=== PATIENT | male | born 1945 | race Caucasian/White ===

== ENCOUNTER 2016-09-21 14:37 | Inpatient (IN) | payer MEDICARE ==
[~2016-09-21] VITALS: Ht 175.3 cm; Wt 100.0 kg
[~2016-09-21 14:37] MED LIST: BUFFERED ASPIR325 M1 PO; BYSTOLIC PO; LIPITOR40 MG PO; MICARDIS40 MG PO; PLAVIX 75MG TAB75 MG PO; RT SPIRIVA18 MCG IH
[2016-09-21] MEDS ORDERED: TOPROL XL 50MG50 MG PO (15:12)
[2016-09-21] MEDS ORDERED: FOLIC ACID 11 MG/TA1 PO (15:13)
[2016-09-21] MEDS ORDERED: ZOCOR 40MG40 MG PO (15:13)
[2016-09-21] MEDS ORDERED: LASIX 40MG TABL40 MG PO (15:13)
[2016-09-21] MEDS ORDERED: K-DUR20 MEQ PO (15:14)
[2016-09-21] MEDS ORDERED: ASPIRIN 81M81 MG/TA2 PO (15:14)
[2016-09-21] MEDS ORDERED: VENTOLIN0.09 MG IH (15:43)
[2016-09-21 15:49] LABS: HEMATOCRIT 46.3 % (42.0-52.0); HEMOGLOBIN 16.1 g/dl (13.5-18.0); MEAN CELL VOLUME 101 fl (80.0-100.0); MEAN CORPUSCULAR HEMOGLOBIN 35 pg (27.0-31.0); MEAN CORPUSCULAR HGB CONC 35 g/dl (33.0-37.0); MEAN PLATELET VOLUME 10.5 fl (7.4-10.4); PLATELET COUNT 129 K/mm3 (130-400); REDCELL DISTRIBUTION WIDTH-CV 13.5 % (11.5-14.5)
[2016-09-21 15:57] LABS: ANION GAP 15 mmol/L (7-16); BLOOD UREA NITROGEN 10 mg/dL (9-20); CALCIUM 9.2 mg/dL (8.4-10.2); CARBON DIOXIDE 29 mmol/L (22-30); CHLORIDE 93 mmol/L (98-107); CREATININE, serum 0.79 mg/dL (0.66-1.25); GLUCOSE 106 mg/dL (74-106); POTASSIUM 3.6 mmol/L (3.4-5.0); SODIUM 137 mmol/L (137-145)
[2016-09-21 16:09] LABS: B-TYPE NATRIURETIC PEPTIDE 69 pg/mL (0-125)
[2016-09-21 16:12] LABS: TROPONIN-I < 0.012 ng/mL (0.000-0.034)
[2016-09-21 16:56] LABS: MAGNESIUM 1.6 mg/dL (1.6-2.3)
[2016-09-21 16:58] LABS: INR 1.2 (0.8-3.0); PROTHROMBIN TIME 13.1 SECONDS (9.7-12.8)
[2016-09-21 17:00] LABS: PARTIAL THROMBOPLASTIN TIME 30.3 SECONDS (26.0-37.0)
[2016-09-21 17:11] VITALS: BP 133/68; PULSE 64; TEMP 98.6
[2016-09-21 17:12] VITALS: BP 133/68; PULSE 64; TEMP 98.6
[2016-09-21 18:09] LABS: PH 7 (5-8); SQUAMOUS EPITHELIAL None Seen /hpf; URINE APPEARANCE Clear; URINE BACTERIA None Seen /hpf; URINE BILIRUBIN Negative (NEGATIVE); URINE BLOOD Negative (NEGATIVE); URINE COLOR Yellow; URINE GLUCOSE Negative (NEGATIVE); URINE KETONE Negative (NEGATIVE); URINE RBC 0-2 /hpf; URINE UROBILINOGEN >=4.0 mg/dL (NEGATIVE); URINE WBC 0-2 /hpf
[2016-09-21 18:18] LABS: AMPHETAMINE URINE NEGATIVE; BARBITURATES URINE NEGATIVE; BENZODIAZEPINES URINE NEGATIVE; BUPRENORPHINE URINE NEGATIVE; METHADONE URINE NEGATIVE; OPIATES URINE NEGATIVE; OXYCODONE URINE NEGATIVE; PHENCYCLIDINE URINE NEGATIVE; PROPOXYPHENE URINE NEGATIVE; THC CANNABINOIDS URINE NEGATIVE
[2016-09-21 19:41] VITALS: BP 167/67; PULSE 69; TEMP 98.5
[2016-09-21 23:08] VITALS: BP 120/82; BP 137/66; PULSE 60; PULSE 74; TEMP 98.5
[2016-09-22 03:27] VITALS: BP 162/74; PULSE 79; TEMP 98.8
[2016-09-22 08:26] VITALS: BP 164/67; PULSE 72; TEMP 98.1
[2016-09-22 11:08] VITALS: BP 171/73; PULSE 61; TEMP 97.6
[2016-09-22 15:26] VITALS: BP 172/63; PULSE 63; TEMP 98.3
[2016-09-22 20:55] VITALS: BP 163/77; PULSE 80; TEMP 98.3
[2016-09-23 00:43] VITALS: BP 171/77; PULSE 65; TEMP 98.7
[2016-09-23 04:51] VITALS: BP 137/50; PULSE 71; TEMP 98.8
[2016-09-23 07:28] VITALS: BP 163/73; PULSE 69; TEMP 97.2
[2016-09-23] MEDS ORDERED: STIOLTO RESPIMAT4 GM IH (11:54)
== END 2016-09-23 12:16 | disposition home or self-care (01) | DRG 191 ==
LOC: MEDICAL 14:37
PROVIDERS: Internal Medicine Interventional Cardiology
DX: J44.1 Chronic obstructive pulmonary disease with (acute) exacerbation (principal); I50.32 Chronic diastolic (congestive) heart failure; I11.0 Hypertensive heart disease with heart failure; I70.213 Atherosclerosis of native arteries of extremities with intermittent claudication, bilateral legs; I87.2 Venous insufficiency (chronic) (peripheral); I25.10 Atherosclerotic heart disease of native coronary artery without angina pectoris; Z95.5 Presence of coronary angioplasty implant and graft; F17.210 Nicotine dependence, cigarettes, uncomplicated; Z85.828 Personal history of other malignant neoplasm of skin; Z95.820 Peripheral vascular angioplasty status with implants and grafts; F10.20 Alcohol dependence, uncomplicated
CPT/HCPCS: J1650

== ENCOUNTER 2017-11-26 14:00 | Emergency (ER) | payer MEDICARE ==
[~2017-11-26] VITALS: Ht 175.3 cm; Wt 96.9 kg
[2017-11-26 12:22] VITALS: BP 147/82; PULSE 78
[2017-11-26 13:46] VITALS: BP 155/80; PULSE 68
[~2017-11-26 14:00] MED LIST changes: +ANORO IH; +ASPIRIN 81M81 MG/TA2 PO; +FOLIC ACID 11 MG/TA1 PO; +K-DUR20 MEQ PO; +LASIX 40MG TABL40 MG PO; +STIOLTO RESPIMAT4 GM IH; +TOPROL XL 50MG50 MG PO; +VENTOLIN0.09 MG IH; +ZOCOR 40MG40 MG PO
[2017-11-26 14:04] VITALS: TEMP 97.2
[2017-11-26 14:35] LABS: PERITONEAL -POLYMORPHONUCLEAR 11.9 % (0-25); PERITONEAL FLUID RBC 1000 /mm3 (0-0)
[2017-11-26 15:08] LABS: BASO # 0.1 (0.0-0.2); BASO % 0.9 % (0.0-2.0); EOS # 0.3 (0.0-0.7); EOS % 4.9 % (0-4.0); GRAN # 3.6 (1.4-6.5); GRAN % 67.6 % (42.2-75.2); HEMATOCRIT 43.3 % (42.0-52.0); HEMOGLOBIN 14.9 g/dl (13.5-18.0); LYMPH # 1.1 (1.2-3.4); LYMPH % 20.5 % (20.0-51.0); MEAN CELL VOLUME 98 fl (80.0-100.0); MEAN CORPUSCULAR HEMOGLOBIN 34 pg (27.0-31.0); MEAN CORPUSCULAR HGB CONC 34 g/dl (33.0-37.0); MEAN PLATELET VOLUME 10.5 fl (7.4-10.4); MONO # 0.3 (0.1-0.6); MONO % 5.9 % (1.7-9.3); PLATELET COUNT 164 K/mm3 (130-400); RED BLOOD COUNT 4.41 M/mm3 (4.20-5.60); REDCELL DISTRIBUTION WIDTH-CV 13.1 % (11.5-14.5)
[2017-11-26 15:17] LABS: ALANINE AMINOTRANSFERASE 22 U/L (21-72); ALKALINE PHOSPHATASE 59 U/L (50-136); ANION GAP 13 mmol/L (7-16); AST,SGOT 58 U/L (15-37); BILIRUBIN,TOTAL 1.7 mg/dL (0.0-1.0); BLOOD UREA NITROGEN 6 mg/dL (9-20); C-REACTIVE PROTEIN 3.5 mg/dL (0.0-0.9); CALCIUM 9.1 mg/dL (8.4-10.2); CARBON DIOXIDE 33 mmol/L (22-30); CREATININE, serum 0.76 mg/dL (0.66-1.25); GLUCOSE 98 mg/dL (74-106); LIPASE 53 U/L (23-300); SODIUM 135 mmol/L (137-145)
[2017-11-26 15:18] LABS: CHLORIDE 89 mmol/L (98-107)
[2017-11-26 15:19] LABS: POTASSIUM 2.7 mmol/L (3.4-5.0)
[2017-11-26 15:27] LABS: TROPONIN-I < 0.012 ng/mL (0.000-0.034)
[2017-11-26] MEDS ORDERED: K-DUR20 MEQ PO (16:18)
[2017-11-26 16:31] VITALS: BP 126/68; PULSE 68
== END 2017-11-26 16:33 | disposition home or self-care (01) ==
LOC: COL.ER 14:00
PROVIDERS: Emergency Medicine; Family Medicine
DX: R18.8 Other ascites (principal); R07.89 Other chest pain; E87.6 Hypokalemia; I10 Essential (primary) hypertension; E78.5 Hyperlipidemia, unspecified; J44.9 Chronic obstructive pulmonary disease, unspecified; F17.210 Nicotine dependence, cigarettes, uncomplicated; Z98.890 Other specified postprocedural states

== ENCOUNTER → 2018-02-12 | Outpatient (CLI) | payer MEDICARE ==
[~2018-02-12] VITALS: Ht 175.3 cm; Wt 97.3 kg
[~2018-02-12] MED LIST changes: +ALDACTONE 25MG25 M1 PO; +TOPROL XL100 MG PO
[2018-02-12 13:33] VITALS: BP 160/87; PULSE 77
[2018-02-12 15:49] VITALS: BP 143/70; PULSE 87
== END ==
LOC: COL.RAD 12:00
DX: K70.31 Alcoholic cirrhosis of liver with ascites (principal)

== ENCOUNTER → 2018-03-25 | Outpatient (CLI) | payer MEDICARE ==
[~2018-03-25] VITALS: Ht 175.3 cm; Wt 97.4 kg
[2018-03-25 15:01] VITALS: BP 152/67; PULSE 73
[2018-03-25 16:26] LABS: PERITONEAL -POLYMORPHONUCLEAR 12.5 % (0-25); PERITONEAL FLUID RBC 1000 /mm3 (0-0)
[2018-03-25 16:51] VITALS: BP 122/67; PULSE 76
--- NOTE | 2018-03-25 17:08 | NUR ---
pt taken to pov in wheelchair. no c/o pain or discomfort.
== END ==
LOC: COL.RAD 14:30
PROVIDERS: Family Medicine
DX: C34.11 Malignant neoplasm of upper lobe, right bronchus or lung (principal); R18.8 Other ascites

== ENCOUNTER → 2018-04-03 | Outpatient (CLI) | payer MEDICARE ==
[~2018-04-03] VITALS: Ht 175.3 cm; Wt 91.7 kg
[~2018-04-03] MED LIST changes: +TYLENOL 325MG325 MG PO
[2018-04-03 08:34] VITALS: BP 126/78; PULSE 76
[2018-04-03 09:15] VITALS: BP 147/80; PULSE 74
--- NOTE | 2018-04-03 10:15 | NUR ---
Pt out to front patient area waiting for daughter to take him home. Pt denies complaints at this time. Pt has discharge paperwork and cd of xray he brought to hospital.
== END ==
LOC: COL.RAD 08:10
DX: C34.11 Malignant neoplasm of upper lobe, right bronchus or lung (principal)

== ENCOUNTER 2018-04-07 19:13 | Inpatient (IN) | payer MEDICARE ==
[~2018-04-07] VITALS: Ht 175.3 cm; Wt 82.5 kg
[2018-04-07 19:42] LABS: BASO # 0.1 (0.0-0.2); BASO % 0.6 % (0.0-2.0); EOS # 2.6 (0.0-0.7); EOS % 21.8 % (0-4.0); GRAN # 7.7 (1.4-6.5); GRAN % 63.7 % (42.2-75.2); HEMOGLOBIN 15.6 g/dl (13.5-18.0); LYMPH # 0.9 (1.2-3.4); LYMPH % 7.6 % (20.0-51.0); MEAN CELL VOLUME 94 fl (80.0-100.0); MEAN CORPUSCULAR HEMOGLOBIN 33 pg (27.0-31.0); MEAN CORPUSCULAR HGB CONC 35 g/dl (33.0-37.0); MEAN PLATELET VOLUME 9.9 fl (7.4-10.4); MONO # 0.6 (0.1-0.6); MONO % 5.1 % (1.7-9.3); PLATELET COUNT 127 K/mm3 (130-400); REDCELL DISTRIBUTION WIDTH-CV 12.9 % (11.5-14.5)
[2018-04-07 19:57] LABS: ALANINE AMINOTRANSFERASE < 6 U/L (21-72); ALBUMIN 3.6 gm/dL (3.5-5.0); ALCOHOL(ethanol),MEDICAL < 10 mg/dL; ALKALINE PHOSPHATASE 101 U/L (50-136); ANION GAP 12 mmol/L (7-16); AST,SGOT 35 U/L (15-37); BILIRUBIN,TOTAL 1.7 mg/dL (0.0-1.0); BLOOD UREA NITROGEN 15 mg/dL (9-20); CALCIUM 8.8 mg/dL (8.4-10.2); CARBON DIOXIDE 26 mmol/L (22-30); CHLORIDE 92 mmol/L (98-107); CREATININE, serum 0.77 mg/dL (0.66-1.25); GLUCOSE 104 mg/dL (74-106); POTASSIUM 4.4 mmol/L (3.4-5.0); SODIUM 129 mmol/L (137-145); TOTAL PROTEIN 7.5 gm/dL (6.4-8.2)
[2018-04-07 22:59] VITALS: BP 117/55; PULSE 80; TEMP 97.4
--- NOTE | 2018-04-07 23:00 | NUR ---
Pt arrived to room 355, transfered per stretcher by ED staff. Pt awake, a&o, cooperative c cares. Pt reports pain to L shoulder/side, denies any other c/o. INT patent. Pt oriented to room, unit policies et current POC. Questions invited et answered, pt verbalizes understanding. Provided c sandwich box per request, pt denies other needs. Call light in reach, bed alarm on. Will monitor.
[2018-04-07] MEDS ORDERED: K-TAB20 PO (23:34)
[2018-04-08] VITALS (7 sets, daily range): BP systolic 97–146; BP diastolic 43–82; PULSE 70–84; TEMP 97.5–98.2
[2018-04-08 06:08] LABS: BASO % 0.5 % (0.0-2.0); EOS # 0.5 (0.0-0.7); EOS % 6.6 % (0-4.0); GRAN # 6.8 (1.4-6.5); GRAN % 82.4 % (42.2-75.2); HEMATOCRIT 43.4 % (42.0-52.0); HEMOGLOBIN 14.7 g/dl (13.5-18.0); LYMPH # 0.6 (1.2-3.4); LYMPH % 6.9 % (20.0-51.0); MEAN CELL VOLUME 96 fl (80.0-100.0); MEAN CORPUSCULAR HEMOGLOBIN 33 pg (27.0-31.0); MEAN CORPUSCULAR HGB CONC 34 g/dl (33.0-37.0); MEAN PLATELET VOLUME 10.3 fl (7.4-10.4); MONO # 0.2 (0.1-0.6); MONO % 2.3 % (1.7-9.3); PLATELET COUNT 144 K/mm3 (130-400); RED BLOOD COUNT 4.53 M/mm3 (4.20-5.60)
[2018-04-08 06:17] LABS: CALCIUM 8.6 mg/dL (8.4-10.2); CREATININE, serum 0.8 mg/dL (0.66-1.25); POTASSIUM 4.2 mmol/L (3.4-5.0)
[2018-04-08 09:02] LABS: INR 1.3 (0.8-3.0); PROTHROMBIN TIME 14.7 SECONDS (9.7-12.8)
--- NOTE | 2018-04-08 09:15 | NUR ---
Pt denied pain earlier this AM; down to MRI at this time.
--- NOTE | 2018-04-08 10:32 | NUR ---
Pt denies pain. Returns from MRI. Consult called to Dr. Guevara.
[2018-04-08 11:03] LABS: COLLECTION METHOD CLEAN CATCH
[2018-04-08 11:06] LABS: PH 7 (5-8); SQUAMOUS EPITHELIAL None Seen /hpf; URINE APPEARANCE Clear; URINE BACTERIA None Seen /hpf; URINE BILIRUBIN Negative (NEGATIVE); URINE BLOOD Negative (NEGATIVE); URINE COLOR Yellow; URINE GLUCOSE Negative (NEGATIVE); URINE KETONE Negative (NEGATIVE); URINE LEUKOCYTE ESTERASE Negative (NEGATIVE); URINE NITRATE Negative (NEGATIVE); URINE PROTEIN(semi-quant) Negative (NEGATIVE); URINE RBC 0-2 /hpf; URINE UROBILINOGEN >=4.0 mg/dL (NEGATIVE)
--- NOTE | 2018-04-08 14:02 | NUR ---
Pt to ultrasound for paracentesis.
--- NOTE | 2018-04-08 14:44 | NUR ---
Dr Blackmon here and directed to radiology to talk with pt. Verified with radiology staff that this could be done and Dr Blackmon went to radiology to see pt. Pt had expressed interest in radiation therapy earlier when we had talked. He remembered that it would probably be 10 treatments. He reports that his feet feel like they are rounded and unstable which has contributed to his recent falls.
--- NOTE | 2018-04-08 15:00 | NUR ---
Rob J collar placed on patient per Dr. Beltran.
--- NOTE | 2018-04-08 15:30 | NUR ---
RADHA met with the patient to discuss discharge plan. The patient lives in [place]. He has an apartment off the north side of his home, which his daughter (Kim) and granddaughter (Preeti) live in. He reports needing occasional assistance with bathing and has a cane and four wheeled walker. The patient reports that he could receive assistance from his daughter. RADHA discussed home health services. The patient reports that he would be interested. RADHA provided the patient with Medicare.[employer]'s list of home health agencies that serve [place]. The patient reports that he would need to dicuss the different agencies with his daughter. The patient's PCP is Dr. Shahram Guevara and he receives his medications at the [facility]. He reports no difficulties obtaining his meds. The patient does not have advanced directives, but he was interested in obtaining the form for DPOA-HC. RADHA provided. The patient plans to return home upon discharge. SW to continue to follow.
--- NOTE | 2018-04-08 18:18 | NUR ---
Pt had uneventful day. Potential discharge tomorrow. Denies further needs at this time; will continue to monitor.
--- NOTE | 2018-04-08 19:04 | NUR ---
Report given to VIPUL Sharma. Pt resting in bed.
--- NOTE | 2018-04-08 20:30 | NUR ---
Initial shift assessment done- denies any pain at this time,,has hard collar to neck-states that is uncomfortable , Tele on, SCD,s applied at this time. Understands he has to call for assistance to bathroom- did help him at this time-steady on feet, back to bed. Bed alarm on as a reminder. Family in room visiting
[2018-04-09 00:36] VITALS: BP 130/60; PULSE 71; TEMP 98.3
[2018-04-09 05:21] VITALS: BP 109/49; BP 94/50; PULSE 65; TEMP 98.4; TEMP 98.6
--- NOTE | 2018-04-09 05:37 | NUR ---
Up to bathoom with assist x3- voiding without problems. Uses walker and assist of nurse. Sitting at edge of bed-eating some pudding--refusing his neck brace
[2018-04-09 07:32] VITALS: BP 95/46; PULSE 68; TEMP 98.4
[2018-04-09 08:32] LABS: CALCIUM 8.6 mg/dL (8.4-10.2); CREATININE, serum 0.79 mg/dL (0.66-1.25); POTASSIUM 3.9 mmol/L (3.4-5.0)
--- NOTE | 2018-04-09 09:24 | NUR ---
Pt resting in bed with call light within reach. Refusing to wear cervical collar, stating "I can't hardly breathe or eat with that thing on." Plan for Xrays today and a potential discharge. Pt denies further needs at this time; will continue to monitor.
--- NOTE | 2018-04-09 10:42 | NUR ---
RADHA attended clinical rounds. The patient is to tentatively discharge today, 04/09. RADHA followed up on home health. The patient preferred [facility]. RADHA contacted and faxed a referral to [facility] . SW awaiting their screening.
--- NOTE | 2018-04-09 10:53 | NUR ---
Initial visit; Patient thanked [employer] for looking in on him and offering God's blessings and to be kept in [employer]'s prayers.
[2018-04-09 11:46] VITALS: BP 124/64; PULSE 64; TEMP 98.2
--- NOTE | 2018-04-09 15:39 | NUR ---
[facility], at [facility], reports that they can accept the patient for services. SW to inform the patient and continue to follow.
[2018-04-09 15:50] VITALS: BP 130/58; PULSE 61; TEMP 98.4
--- NOTE | 2018-04-09 17:55 | NUR ---
Pt had uneventful day. Awaiting recommendations from neurosurgeon at [facility]. Pt verbalizes understanding that he will have to stay here another night; expresses that he wants a cigarette. Reviewed smoking policy; pt verbalizes understanding. States he is not interested in a nicotine patch.
--- NOTE | 2018-04-09 18:53 | NUR ---
Report given to VIPUL Bullock. Pt resting in bed and denies needs at this time.
[2018-04-09 19:00] VITALS: BP 117/58; PULSE 63; TEMP 98.4
--- NOTE | 2018-04-09 20:01 | NUR ---
Up to restroom and returned to bed x1 assist with walker. Assessment complete. Lungs clear. Bowels active. Denies pain at this time. Right lower leg +1 edema. Bruise to left hand. Denies needs at this time. Visitor in room. Call light in reach. Bed alarm on.
--- NOTE | 2018-04-09 23:25 | NUR ---
Resting in bed asleep. Call light in reach. Bed alarm on.
[2018-04-10 00:15] VITALS: BP 101/45; PULSE 53; TEMP 98.5
--- NOTE | 2018-04-10 02:00 | NUR ---
Resting in bed asleep. Removed colar. Call light in reach.
[2018-04-10 04:09] VITALS: BP 132/63; PULSE 62; TEMP 98.4
--- NOTE | 2018-04-10 06:08 | NUR ---
Uneventful night. Resting in bed this AM without neck colar on. Call light in reach.
[2018-04-10 07:36] VITALS: BP 135/64; PULSE 61; TEMP 98.4
--- NOTE | 2018-04-10 08:42 | NUR ---
Assessment completed, alert/oriented, vital signs stable, reports mild pain/ exacerbated by left arm/shoulder rotationd due to clavicle fx, heart RRR, lungs CTA, he is currently wearing his C-collar but was given permission by to removed collar intermittently for comfort, awaiting recs from neurosurgery in [place] for discharg options , he is sititng up eating breakfast, denies other needs at this time
--- NOTE | 2018-04-10 10:39 | NUR ---
SW met with the patient to discuss occupational therapies recommendation of a front wheeled walker. The patient reports that he would be interested in getting one. SW discussed DME options and presented and explained the patient choice form. The patient preferred [facility]. Patient choice form signed and he was provided a copy. RADHA contacted and faxed the patient's walker order to [facility].
[2018-04-10 11:01] VITALS: BP 126/82; PULSE 58; TEMP 98.1
[2018-04-10] MEDS ORDERED: DECADRON 4MG TAB4 MG PO (11:46)
--- NOTE | 2018-04-10 13:10 | NUR ---
[facility] to deliver the patient's FWW to his room. The patient is to discharge back home today, 04/10, with home health services for halfway/PT/OT through [facility]. No additional needs at this time.
--- NOTE | 2018-04-10 14:39 | NUR ---
Discharge orders discussed with patient, instructed to wear C-Collar at all times, instructed to follow up with as scheduled, patient daughter will call office for consult to set up outpatient radiation, IV removed, script for Decadron sent to [facility] pharmacy, [employer] escorting him out by wheelchair
== END 2018-04-10 14:30 | disposition home health service (06) | DRG 55 ==
LOC: COL.ER 19:13 → MEDICAL 22:06
PROVIDERS: Emergency Medicine; Nurse Practitioner; Physician Assistant; ADMIT Hospitalist
PROC: 0W9G3ZZ Drainage of Peritoneal Cavity, Percutaneous Approach (ICD-10-PCS; principal; 2018-04-08)
DX: C79.31 Secondary malignant neoplasm of brain (principal); S22.32XA Fracture of one rib, left side, initial encounter for closed fracture; S12.001A Unspecified nondisplaced fracture of first cervical vertebra, initial encounter for closed fracture; C34.11 Malignant neoplasm of upper lobe, right bronchus or lung; C79.51 Secondary malignant neoplasm of bone; C77.3 Secondary and unspecified malignant neoplasm of axilla and upper limb lymph nodes; E22.2 Syndrome of inappropriate secretion of antidiuretic hormone; S42.018A Nondisplaced fracture of sternal end of left clavicle, initial encounter for closed fracture; I10 Essential (primary) hypertension; J44.9 Chronic obstructive pulmonary disease, unspecified; I73.9 Peripheral vascular disease, unspecified; K70.30 Alcoholic cirrhosis of liver without ascites; F10.20 Alcohol dependence, uncomplicated; E78.5 Hyperlipidemia, unspecified; Z95.5 Presence of coronary angioplasty implant and graft; F17.210 Nicotine dependence, cigarettes, uncomplicated; W18.30XA Fall on same level, unspecified, initial encounter; Z91.81 History of falling
CPT/HCPCS: OP; 99233-AI; 99239; A9585; G0378; J1100; Q9967

== ENCOUNTER 2018-04-22 10:32 | Inpatient (IN) | payer MEDICARE ==
[~2018-04-22] VITALS: Ht 172.7 cm; Wt 85.8 kg
[2018-04-22] VITALS (494 sets, daily range): BP systolic 121–139; BP diastolic 65–83; PULSE 96–107; TEMP 97.8–97.9; O2SAT 69–100
[~2018-04-22 10:32] MED LIST changes: +DECADRON 4MG TAB4 MG PO; +K-TAB20 PO
[2018-04-22 10:57] LABS: MEAN CELL VOLUME 93 fl (80.0-100.0); MEAN CORPUSCULAR HGB CONC 35 g/dl (33.0-37.0); MEAN PLATELET VOLUME 12.1 fl (7.4-10.4); RED BLOOD COUNT 5.73 M/mm3 (4.20-5.60); REDCELL DISTRIBUTION WIDTH-CV 13.2 % (11.5-14.5)
[2018-04-22 11:15] LABS: LACTIC ACID 3.3 mmol/L (0.4-2.0)
[2018-04-22 11:16] LABS: HEMATOCRIT 53.2 % (42.0-52.0); HEMOGLOBIN 18.4 g/dl (13.5-18.0); MEAN CORPUSCULAR HEMOGLOBIN 32 pg (27.0-31.0); PLATELET COUNT 42 K/mm3 (130-400)
[2018-04-22 11:24] LABS: BAND 12 % (0-10); EOSINOPHIL 5 % (0-4); LYMPHOCYTE 4 % (20.0-51.0); NEUTROPHILS 73 % (42.0-75.2)
[2018-04-22 11:25] LABS: PLATELET ESTIMATE DECREASED (NORMAL)
[2018-04-22 11:38] LABS: INR 1.4 (0.8-3.0); PROTHROMBIN TIME 15.7 SECONDS (9.7-12.8)
[2018-04-22 11:40] LABS: PARTIAL THROMBOPLASTIN TIME 32.2 SECONDS (26.0-37.0)
[2018-04-22 11:44] LABS: ALANINE AMINOTRANSFERASE 24 U/L (21-72); ALBUMIN 3.6 gm/dL (3.5-5.0); ALKALINE PHOSPHATASE 110 U/L (50-136); ANION GAP 11 mmol/L (7-16); AST,SGOT 50 U/L (15-37); BILIRUBIN,TOTAL 2.3 mg/dL (0.0-1.0); BLOOD UREA NITROGEN 42 mg/dL (9-20); CALCIUM 9.3 mg/dL (8.4-10.2); CARBON DIOXIDE 29 mmol/L (22-30); CHLORIDE 92 mmol/L (98-107); CREATININE, serum 1.07 mg/dL (0.66-1.25); GLUCOSE 123 mg/dL (74-106); POTASSIUM 4.3 mmol/L (3.4-5.0); SODIUM 132 mmol/L (137-145); TOTAL PROTEIN 6.8 gm/dL (6.4-8.2)
[2018-04-22 11:46] LABS: ALCOHOL(ethanol),MEDICAL < 10 mg/dL
[2018-04-22 12:01] LABS: ARTERIAL BLD GAS O2 SATURATION 84.7 % (92-100); ARTERIAL BLD GAS TCO2 CT 25.8; ARTERIAL BLOOD GAS BASE EXCESS 2.3 (-2-2); ARTERIAL BLOOD GAS HCO3 24.8 meq/L (22-26); ARTERIAL BLOOD GAS PCO2 33.1 mmHg (35-45); ARTERIAL BLOOD GAS PO2 49.8 mmHg (80-100); ARTERIAL BLOOD GAS pH 7.49 (7.35-7.45)
--- NOTE | 2018-04-22 13:20 | NUR ---
PATIENT ARRIVED TO ICU ROOM 6 VIA CART FROM THE EMERGENCY ROOM. REPORT FROM NIRANJAN Paulino. PATIENT WAS MOVED OVER TO THE BED. HE WAS INCONTINENT OF URINE. PATIENT WAS CLEANED UP. HE WAS PLACED ON THE MONITOR AND ALL VITAL SIGNS STABLE AT THIS TIME. PATIENT IS EXTREMELY SLEEPING. HE WILL OPEN HIS EYES WITH VERBAL STIMULI, HOWEVER HE QUICKLY FALLS BACK ASLEEP. BIPAP IS ON PATIENT WITH FI02 OF 60%
--- NOTE | 2018-04-22 14:36 | NUR ---
Pt has just arrived from the ER to ICU #6. His son and daughter are here and are looking at goals of care. I was called by Melissa to come visit with them in the waiting room while pt is being cared for at arrival. Both son and daughter are interested in getting their father to a point that he could return home and at that point they would look at hospice services. He has been doing radiation therapy but it is "too much". Family verbalizes understanding that if things worsen, their father may not leave the hospital but would like to respect his wishes if this is possible. Family was given pamphlets for [place], [facility], and [facility] services by their request. Family would like for everything to be in place when hospice services are desired.
--- NOTE | 2018-04-22 18:00 | NUR ---
PATIENT TAKEN OFF BIPAP AND PLACED ON 7L OXYMASK. O2 SATS MAINTAINING AT 93%
--- NOTE | 2018-04-22 19:10 | NUR ---
REPORT RECEIVED FROM VIPUL UREÑA AT BEDSIDE.
--- NOTE | 2018-04-22 19:13 | NUR ---
REPORT GIVEN TO VIPUL COLLIER.
[2018-04-22 19:16] LABS: COLLECTION METHOD CLEAN CATCH
[2018-04-22 19:24] LABS: MUCOUS Present /lpf; PH 6 (5-8); SQUAMOUS EPITHELIAL 0-2 /hpf; URINE APPEARANCE Clear; URINE BACTERIA None Seen /hpf; URINE BILIRUBIN Negative (NEGATIVE); URINE BLOOD 3+ (NEGATIVE); URINE COLOR Yellow; URINE GLUCOSE Negative (NEGATIVE); URINE KETONE Negative (NEGATIVE); URINE LEUKOCYTE ESTERASE Negative (NEGATIVE); URINE NITRATE Negative (NEGATIVE); URINE PROTEIN(semi-quant) Negative (NEGATIVE); URINE RBC >50 /hpf
[2018-04-22 19:28] LABS: TRICYCLIC ANTIDEPRESS URINE NEGATIVE
--- NOTE | 2018-04-22 20:30 | NUR ---
PT PUT BACK ON BIPAP BY RT. PT TOLERATING WELL AND O2 SAT AT 93%.
[2018-04-23] VITALS (688 sets, daily range): BP systolic 116–142; BP diastolic 68–83; PULSE 88–113; TEMP 97.6–98.8; O2SAT 85–100
--- NOTE | 2018-04-23 02:08 | NUR ---
PT WAS SATING WELL AT 98% ON 60% FIO2. TIRATED FIO2 DOWN TOLERATED PT IS SATING FINE AT 97% ON 45% FI02. NO DISTRESS WAS NOTED. BREATHING TREATMENT DONE THROUGH THE BIPAP MASK.
--- NOTE | 2018-04-23 02:14 | NUR ---
PT'S BIPAP FI02 WAS DECREASED FROM 65% TO 45% BY RT. PT TOLERATING WELL AND CURRENTLY SLEEPING. NO SIGNS OF DISTRESS NOTED. WILL CONTINUE TO MONITOR.
[2018-04-23 05:34] LABS: CALCIUM 8.1 mg/dL (8.4-10.2); CREATININE, serum 0.94 mg/dL (0.66-1.25); POTASSIUM 4.5 mmol/L (3.4-5.0)
--- NOTE | 2018-04-23 05:40 | NUR ---
PT OFF OF BIPAP. PT TOLERATING WELL AND O2 SAT AT 93% ON 6 LPM OF O2 VIA OXYMASK. PT ALERT AND ORIENTED, REQUESTED TO DRINK WATER AND COMPLAINING OF PAIN. PRN MED GIVEN. PT REPOSITIONED. VS HAVE BEEN STABLE THROUGHOUT THE NIGHT, NO S/SX OF BLEEDING NOTED. WILL CONTINUE TO MONITOR.
[2018-04-23 05:54] LABS: BASO % 0.2 % (0.0-2.0); EOS # 0.3 (0.0-0.7); EOS % 2.1 % (0-4.0); GRAN # 13.4 (1.4-6.5); GRAN % 89.6 % (42.2-75.2); HEMATOCRIT 42.1 % (42.0-52.0); LYMPH # 0.4 (1.2-3.4); LYMPH % 2.9 % (20.0-51.0); MEAN CELL VOLUME 94 fl (80.0-100.0); MEAN CORPUSCULAR HGB CONC 34 g/dl (33.0-37.0); MEAN PLATELET VOLUME 13.1 fl (7.4-10.4); MONO # 0.5 (0.1-0.6); RED BLOOD COUNT 4.46 M/mm3 (4.20-5.60); REDCELL DISTRIBUTION WIDTH-CV 13.2 % (11.5-14.5)
[2018-04-23 06:00] LABS: HEMOGLOBIN 14.3 g/dl (13.5-18.0); MEAN CORPUSCULAR HEMOGLOBIN 32 pg (27.0-31.0); PLATELET COUNT 17 K/mm3 (130-400)
[2018-04-23 06:00] LABS: TROPONIN-I 2.19 ng/mL (0.000-0.035)
--- NOTE | 2018-04-23 06:20 | NUR ---
0536 - RECEVED A CRITICAL PLATELETS OF 17 FROM LAB. E-CARE NOTIFIED, THIS RN SPOKE TO HOANG HULL AND ORDERED REPEAT DRAW AFTER IV PUMP ON HOLD FOR 10 MINS. 0600 - CRITICAL VALUE OF PLATELET 17 AND HEMOGLOBIN 14.3 RECEIVED FROM LAB, E CARE NOTIFIED (HOANG HULL), NON NEW ORDERS RECEIVED. HOANG WILL RELAY LAB VALUES TO
--- NOTE | 2018-04-23 07:27 | NUR ---
report given to VIPUL Shaver at bedside.
--- NOTE | 2018-04-23 09:55 | NUR ---
Talked with daughter and pt. Dr White and Dr Vargas have visited with pt and family. They are waiting on [facility]'s arrival to discuss what their plan is. At this point they are willing to consider the [facility] if doctors believe that they may not be able to handle care at home. Will await their discussion and assist with planning.
--- NOTE | 2018-04-23 11:09 | NUR ---
SW and SW student attended clinical rounding and met with patient to discuss discharge planning. Patient lives in [place] and his daughter and granddaughter live in an apartment attached to his house. Patients PCP is Dr Shahram Guevara and he obtains his medications from [facility]. Patient has a cane and walker and had [facility] set up at his last discharge. Patient and family have been talking to [facility] nurse about options for DC. SW will follow up with patient when family is here as well to discuss what they would like to do.
--- NOTE | 2018-04-23 11:33 | NUR ---
First visit from the orientor. No needs right now.
--- NOTE | 2018-04-23 13:57 | NUR ---
RADHA, RADHA student, and pallative care nurse met with patient and his family to discuss pallative care options for DC. The options were discussed and the family feels that staying in [place] will be better than going to [place]. RADHA assisted them in setting up a tour and meeting with homecare and hospice/[facility] at 3pm today. RADHA faxed referral over. Will continue to follow.
--- NOTE | 2018-04-23 16:13 | NUR ---
RADHA received a call from Kelsey at [facility]. She reports the family informed her they would like patient to go there tomorrow. RADHA will follow up with patient and family when they return.
--- NOTE | 2018-04-23 20:30 | NUR ---
PT A&O X3 ANSWERING ALL QUESTIONS APPROPRIATELY, BUT SLOW TO ANSWER. ADDITIONALLY, PT ACTS SELDOMLY CONFUSED. GENERALIZED BRUISING ALL OVER BODY ALONG WITH SCABS ON BILAT HANDS/ARMS/LOWER LEGS. PER PROVIDERS ORDER: VS BY FAMILY REQUEST. THE ONLY VS CONTINOUSLY MONITORED AND/OR OBTAINED NOT BY REQUEST: AXILLARY TEMP, KILN PULLER, SP02.
[2018-04-24] VITALS (330 sets, daily range): BP systolic 142; BP diastolic 79; PULSE 95–107; TEMP 97.9–98.1; O2SAT 79–100
--- NOTE | 2018-04-24 02:15 | NUR ---
PT STATES NEEDS TO HAVE BM, BUT REFUSES TO USE BED KERR. PT TO COMMODE WITH TWO PERSON ASSIST. PT STATES HE NEEDS TO URINATE WHILE SITTING ON COMMODE AND REMINDED THREE TIMES THAT HE HAS A CELESTIN CATHETER. NO BM. 0315: CONTACTED HOSPITALIST REGARDING PT FIRM ABD AND NO BM. PER THE PTS DAUGHTER, PT HAS PERITONEAL FLUID DRAINED OFF FOR COMFORT.
--- NOTE | 2018-04-24 03:45 | NUR ---
Pt report received by Tonie MATTHEW. Care assumed at this time.
--- NOTE | 2018-04-24 04:00 | NUR ---
SCAB BROKE OPEN ON PTS LEFT HAND. HAND CLEANED AND BANDAID APPLIED.
--- NOTE | 2018-04-24 05:40 | NUR ---
PT HAD INCREASED WOB. WIX BEFORE AND AFTER SCHEDULED BREATHING TREATMENT. PRN TREATMENT GIVEN RIGHT AFTER SCHEDULED TREATMENT. IMPROVMENT IN BREATHSOUNDS NOTED HOWEVER STILL WIX AND COURSE. PLACED BACK ON BIPAP WITH NO DISTRESS NOTED AT THAT TIME. WILL CONTINUE TO MONITOR AND ASSESS.
--- NOTE | 2018-04-24 07:27 | NUR ---
Bedside report provided to Ilia MATTHEW.
[2018-04-24] MEDS ORDERED: ROXANOL 20MG20 MG/ML SL (10:51)
[2018-04-24] MEDS ORDERED: TRANSDERM-0.5 MG/21 TD (10:52)
[2018-04-24] MEDS ORDERED: ARTIFICIAL TEAR15 M7 OP (10:52)
[2018-04-24] MEDS ORDERED: ATIVAN 1MG T1 MG/TAB PO (10:53)
--- NOTE | 2018-04-24 11:08 | NUR ---
SW and SW student met with patient and his daughter. They are agreeable to going to [facility] today. SW called [facility] to see what time they would like transport. SW waiting to hear back.
--- NOTE | 2018-04-24 11:15 | NUR ---
RADHA talked with Kelsey at [facility] who reports 03/12:30 pu will work best and that patient can keep his PICC in. RADHA called [facility] and set up transport for 1:30pm, today 04/24. Nurse and family informed. Discharge orders faxed. Patient to dc today for hospice services at the [facility]. no other identified dc needs.
--- NOTE | 2018-04-24 11:58 | NUR ---
Family did tour hospice house yesterday and feel that is where they wish to go today. Arrangements have been made and transfer will occur around 1330. no further needs were identified.
--- NOTE | 2018-04-24 13:00 | NUR ---
PICC intact right upper arm with sterile dressing change done with moderate amount of dried reddish drainage noted. cleansed with chloraprep x 1, chlorhexidine impregnated disk applied, skin prep, stat lock, and tegaderm applied. no signs or symptoms of IV complications noted. no concerns voiced. re-wrapped with reuben to protect catheter. [facility].
--- NOTE | 2018-04-24 13:21 | NUR ---
Report given to VIPUL Barahona at [facility]
--- NOTE | 2018-04-24 13:40 | NUR ---
Pt d/c'ed to [facility] with EMS at 1340. Pt stable at time of d/c, on oxymask at 10L, dening pain or discomfort. Belongings given to pt's daughter Ara. Short report given to EMS re: pt care.
== END 2018-04-24 13:40 | disposition hospice, inpatient (51) | DRG 871 ==
LOC: COL.ER 10:32 → ICU 12:40
PROVIDERS: Emergency Medicine; Nurse Practitioner Family; ADMIT Hospitalist
PROC: 02H633Z Insertion of Infusion Device into Right Atrium, Percutaneous Approach (ICD-10-PCS; principal; 2018-04-22)
DX: A41.9 Sepsis, unspecified organism (principal); J12.1 Respiratory syncytial virus pneumonia; J96.21 Acute and chronic respiratory failure with hypoxia; I21.4 Non-ST elevation (NSTEMI) myocardial infarction; C34.11 Malignant neoplasm of upper lobe, right bronchus or lung; C79.31 Secondary malignant neoplasm of brain; Z51.5 Encounter for palliative care; Z66 Do not resuscitate; C79.51 Secondary malignant neoplasm of bone; J44.0 Chronic obstructive pulmonary disease with (acute) lower respiratory infection; E87.1 Hypo-osmolality and hyponatremia; I10 Essential (primary) hypertension; I25.10 Atherosclerotic heart disease of native coronary artery without angina pectoris; E78.5 Hyperlipidemia, unspecified; Z95.5 Presence of coronary angioplasty implant and graft; I73.9 Peripheral vascular disease, unspecified; F17.210 Nicotine dependence, cigarettes, uncomplicated; D75.1 Secondary polycythemia; D69.6 Thrombocytopenia, unspecified; K70.30 Alcoholic cirrhosis of liver without ascites; F10.20 Alcohol dependence, uncomplicated
CPT/HCPCS: 99222-AI; 99223-AI; 99233-AI; 99239; A4216; C1751; J0692; J1940; J1956; J2270; J2543; J2920; J3010; J3370; J7030; J7040; J7050